=== PATIENT | male | born 1985 | race African-American/Black ===

== ENCOUNTER 2019-09-08 00:37 | Emergency (ER) | payer MEDICAID ==
[~2019-09-08] VITALS: Ht 165.1 cm; Wt 71.0 kg
[2019-09-08 01:06] VITALS: BP 127/79
== END 2019-09-08 03:12 | disposition left against medical advice (07) ==
LOC: ER 00:37
DX: Z53.21 Procedure and treatment not carried out due to patient leaving prior to being seen by health care provider (principal)